=== PATIENT | female | born 1970 | race African-American/Black ===

== ENCOUNTER 2016-12-24 13:14 | Emergency (ER) | payer OTHER ==
[~2016-12-24] VITALS: Ht 175.3 cm; Wt 100.0 kg
[2016-12-24] MEDS ORDERED: PREDNISONE 20MG TABLET PO ONE (14:45)
[2016-12-24] MEDS ORDERED: VALACYCLOVIR HCL 500MG TABLET PO SCH (14:45)
[2016-12-24 15:38] LABS: CHLORIDE 105 mEq/L (98-107)
[2016-12-24 15:39] LABS: INR 1.1; PROTHROMBIN TIME 11.4 sec (9.4-11.6)
[2016-12-24 15:40] LABS: BASOPHILS % 0.6 % (0.0-2.0); EOSINOPHILS % 0.8 % (0.0-5.0); HEMATOCRIT. 26.5 % (36.0-48.0); HEMOGLOBIN. 8.2 g/dL (12.0-16.0); MEAN CORPUSCULAR HEMOGLOBIN 19.3 pg (28.0-32.0); MEAN CORPUSCULAR VOLUME 62.8 fL (81.0-99.0); MEAN PLATELET VOLUME 9.7 fl (7.4-10.4); MONOCYTES % 8.6 % (2.0-8.0); PLATELET 250 x1000/uL (130-400); RED BLOOD CELL COUNT 4.23 mill/uL (4.2-5.4); RED CELL DISTRIBUTION WIDTH 20.1 % (11.6-14.6)
[2016-12-24 15:46] LABS: CARBON DIOXIDE 26 mEq/L (21-32)
[2016-12-24 16:17] LABS: PLATELET ESTIMATE NORMAL
[2016-12-24 18:02] VITALS: BP 143/76
== END 2016-12-24 18:06 | disposition home or self-care (01) ==
LOC: ER 16:27
DX: G51.0 Bell's palsy (principal)
CPT/HCPCS: 36415; 80053; 85025; 85610; 99284; J7512